=== PATIENT | female | born 1990 | race Caucasian/White ===

== ENCOUNTER 2016-09-08 10:14 | Inpatient (IN) | payer MEDICAID ==
[~2016-09-08] VITALS: Ht 149.9 cm; Wt 80.2 kg
[2016-09-08 10:18] VITALS: Ht 149.9 cm; Wt 80.2 kg
[2016-09-08 10:20] VITALS: BP 124/86; PULSE 74; RESP 18
[2016-09-08 10:25] LABS: URINE BLOOD (Dip) POC Negative (NEGATIVE)
[2016-09-08] MEDS ORDERED: PREN1TAB13 PO (10:27)
[2016-09-08 10:31] LABS: ADD SCAN DIFF NO
[2016-09-08 10:48] LABS: ALBUMIN 3.5 g/dl (3.3-4.9); BASOPHILS % 0.5 % (0.0-2.0); EOSINOPHILS # 0.3 10^3/ul (0.0-0.5); EOSINOPHILS % 4.2 % (0.0-7.0); HEMATOCRIT 39.7 % (37.0-47.0); HEMOGLOBIN 13.1 g/dl (12.0-16.0); LYMPHOCYTES % 25.3 % (15.0-51.0); MEAN CORPUSCULAR HEMOGLOBIN 28.4 pg (29.0-33.0); MEAN CORPUSCULAR VOLUME 85.9 fl (82.0-101.0); MEAN PLATELET VOLUME 11.6 fl (7.4-10.4); MONOCYTE # 0.7 10^3/ul (0.3-0.9); MONOCYTES % 8.6 % (0.0-11.0); NEUTROPHIL # 4.8 10^3/ul (1.6-7.5); NEUTROPHILS % 60.9 % (39.0-77.0); PLATELET COUNT 221 10^3/UL (140-415); POTASSIUM 4.4 mmol/L (3.5-5.1); RED BLOOD COUNT 4.62 10^6/ul (4.20-5.40); RED CELL DISTRIBUTION WIDTH 14.1 % (11.5-14.5); WHITE BLOOD COUNT 7.9 10^3/ul (4.8-10.8)
[2016-09-08 10:51] LABS: ALBUMIN/GLOBULIN RATIO 0.97; BILIRUBIN,INDIRECT 0.1 mg/dl (0-1.1); BILIRUBIN,TOTAL 0.1 mg/dl (0.2-1.3); CREATININE 0.56 mg/dl (0.44-1.00); TOTAL PROTEIN 7.1 g/dl (6.1-8.1)
[2016-09-08 10:55] LABS: INR 0.89; PT RATIO 0.9
[2016-09-08 10:56] LABS: PARTIAL THROMBOPLASTIN TIME 25.9 Sec (25.0-35.0)
--- NOTE | 2016-09-08 11:38 | RADRPT ---
PROCEDURE: US OB biophysical profile. CLINICAL INDICATION: decreased movements, PIH TECHNIQUE: Multiple sonographic images of the pelvis were obtained. The images were reviewed on a PACS workstation. COMPARISON: No prior studies are available for comparison. FINDINGS: There is a single viable intrauterine gestation. Cardiac activity is present with 144 beats per min pauma. There is a vertex presentation. The placenta is anterior. There is no evidence of placental abruption. There is a normal amount of amniotic fluid with an ANAMARIA = 8.3 cm. Biophysical profile: movement 2/2 tone 2/2. breathing 2/2 ANAMARIA 2/2 Total 01/19 RPTAT: AA . IMPRESSION: Normal biophysical profile. . .Eitan Marcelino MD, MD Date Time Electronically viewed and signed by .Eitan Marcelino MD, MD on 09/08/2016 11:37 .S/
--- NOTE | 2016-09-08 12:48 | TRIAGE ---
OB Triage Datetime Report Generated by CPN: 09/08/2016 12:48 Datetime: 09/08/2016 12:33 Comments: Pt to 2ne Datetime: 09/08/2016 12:32 Labor Evaluation Frequency: 4-6 Monitor Mode: External Duration (sec)2399: 40-80 Quality: Mild Pattern: Normal: <= 5 Contractions in 10 Minutes Resting Tone Daisy: Relaxed Heart Rate FHR Baseline Rate: 135 Monitor Mode: External US FHR Baseline Changes: No Baseline Change Variability: Moderate 6-25 bpm Accelerations: 15X15 Decelerations: None Category: Category I Pain Assessment Pain Scale: 0 Pain Presence: None/Denies Pain Type: N/A Pain Goal: 3 Datetime: 09/08/2016 12:25 Comments: Report to Kavita RN on 2NE Datetime: 09/08/2016 12:14 Comments: Dr. Watson was informed of pt's lab result (WNL), BPs 140-170's over 90-100's, c/o heada alfonzo. New order to sent pt to 2NE and start pt on Magnessium Sulfate 4 grams and then 2 grams. Low s alt diet and start the Bethamethasone. Datetime: 09/08/2016 11:55 Labor Evaluation Frequency: X4 Monitor Mode: External Duration (sec)2399: 40-60 Quality: Mild Pattern: Normal: <= 5 Contractions in 10 Minutes Resting Tone Daisy: Relaxed Heart Rate FHR Baseline Rate: 135 Monitor Mode: External US FHR Baseline Changes: No Baseline Change Variability: Moderate 6-25 bpm Accelerations: 15X15 Decelerations: None Category: Category I Pain Assessment Pain Scale: 0 Pain Presence: None/Denies Pain Type: N/A Pain Goal: 3 Datetime: 09/08/2016 11:50 Comments: LEFT TILT Datetime: 09/08/2016 11:00 Labor Evaluation Frequency: X4 Monitor Mode: External Duration (sec)2399: 40-90 Quality: Mild Pattern: Normal: <= 5 Contractions in 10 Minutes Resting Tone Daisy: Relaxed Heart Rate FHR Baseline Rate: 135 Monitor Mode: External US FHR Baseline Changes: No Baseline Change Variability: Moderate 6-25 bpm Accelerations: 15X15 Decelerations: None Category: Category I Pain Assessment Pain Scale: 0 Pain Presence: None/Denies Pain Type: N/A Pain Goal: 3 Vaginal Exam Membrane Status: Intact Datetime: 09/08/2016 10:55 Comments: 24 HR URINE COLLECTION STARTED Datetime: 09/08/2016 10:37 Comments: Dr. Watson was informed of pt's arrival to the unit sent from clinic for brice BP's and headaches. New order for PIH labs, BPP and 24 hrs urine collection. Datetime: 09/08/2016 10:30 Stage of : OB Triage Assessment Type: Triage Maternal Assessment Level of Consciousness: Fully Conscious DTR's/Clonus: DTRs 2+; No Clonus Headache: Denies (Annotations: Denies headache at this time) Blurred Vision: No Respiratory Effort: Unlabored; Regular Rhythm; Equal Expansion Breath Sounds, Left: Clear and Equal Breath Sounds, Right: Clear and Equal Nausea/Vomiting: Denies RUQ Epigastric Pain: Denies Lower Extremities Edema: None Upper Extremities Edema: None Facial Edema: None Fall Risk Assessment History of Falling: (0) No Secondary Diagnosis: (0) No Ambulatory Aid: (0) Bedrest/Nurse Assist IV Therapy: (0) No Gait: (0) Normal/Bedrest/Immobile Mental Status: (0) Oriented to Own Ability Fall Score: 0 Fall Risk Score Definition: No Risk: No action required Pain Assessment Pain Scale: 0 Pain Presence: None/Denies Pain Type: N/A Pain Goal: 3 Datetime: 09/08/2016 10:29 EGA: 34.2 Datetime: 09/08/2016 10:27 Time of Arrival: 09/08/2016 10:02 Arrived By: Ambulatory Arrived From: Dr. Patel Chief Complaint: Sent from clinic for high blood pressures and headaches Movement: Present Rupture of Membranes: Denies Vaginal Bleeding: None Vaginal Discharge: Denies Recent Sexual Intercouse: Denies Abdominal Trauma: Not Applicable Patient Complaints: Headache Provider Notified: [place] Initial Plan: NST, BPP, PIH PANEL Datetime: 09/08/2016 10:19 Stage of : OB Triage Datetime: 09/08/2016 10:18 Stage of : OB Triage Datetime: 09/08/2016 10:12 Stage of : OB Triage
[2016-09-08] MEDS: LACTATED RINGER'S 1,000 ML IV SCH ×2 (12:55→21:10)
[2016-09-08] MEDS ORDERED: MAGNESIUM SULFATE 4 GM/100 ML 100 ML ONE (13:02)
[2016-09-08] MEDS ORDERED: MAGNESIUM SULFATE 4 GM/100 ML 100 ML IV ONE (13:30)
[2016-09-08] MEDS: MAGNESIUM SULFATE 20 GM/500 ML 500 ML IV SCH (13:49)
[2016-09-08] MEDS: BETAMET NA PHOS/AC(6 MG/ML) 5ML INJ IM SCH (13:59)
--- NOTE | 2016-09-08 17:05 | HP ---
Date/Time of Note Date/Time of Note DATE: 09/08/16 TIME: 16:51 OB - History Hx of Present Free Text/Dictation Laboratory Tests Test 09/08/16 10:20 09/08/16 10:23 White Blood Count 7.910^3/ul Red Blood Count 4.6210^6/ul Hemoglobin 13.1g/dl Hematocrit 39.7% Mean Corpuscular Volume 85.9fl Mean Corpuscular Hemoglobin 28.4pg Mean Corpuscular Hemoglobin Concent 33.0g/dl Red Cell Distribution Width 14.1% Platelet Count 66690^3/UL Mean Platelet Volume 11.6fl Neutrophils % 60.9% Lymphocytes % 25.3% Monocytes % 8.6% Eosinophils % 4.2% Basophils % 0.5% Nucleated Red Blood Cells % 0.0/100WBC Neutrophils # 4.810^3/ul Lymphocytes # 2.010^3/ul Monocytes # 0.710^3/ul Eosinophils # 0.310^3/ul Basophils # 0.010^3/ul Nucleated Red Blood Cells # 0.010^3/ul Prothrombin Time 12.0Sec Prothrombin Time Ratio 0.9 INR International Normalized Ratio 0.89 Activated Partial Thromboplast Time 25.9Sec Sodium Level 133mmol/L Potassium Level 4.4mmol/L Chloride Level 104mmol/L Carbon Dioxide Level 21mmol/L Anion Gap 12 Blood Urea Nitrogen 13mg/dl Creatinine 0.56mg/dl Glucose Level 88mg/dl Uric Acid 4.0mg/dl Calcium Level 9.0mg/dl Total Bilirubin 0.1mg/dl Direct Bilirubin 0.00mg/dl Indirect Bilirubin 0.1mg/dl Aspartate Amino Transf (AST/SGOT) 29IU/L Alanine Aminotransferase (ALT/SGPT) 36IU/L Alkaline Phosphatase 123IU/L Total Protein 7.1g/dl Albumin 3.5g/dl Globulin 3.60g/dl Albumin/Globulin Ratio 0.97 Bedside Urine pH (LAB) 6.0 Bedside Urine Protein (LAB) Negative Bedside Urine Glucose (UA) Negative Bedside Urine Ketones (LAB) Negative Bedside Urine Blood Negative Bedside Urine Nitrite (LAB) Negative Bedside Urine Leukocyte Esterase (L Trace Current Medications Medications (Trade) Dose Ordered Sig/Sebastián Route PRN Reason Start Time Stop Time Status Last Admin Dose Admin Magnesium Sulfate 100 ml @ ud STK-MED ONCE .ROUTE 09/08/16 13:02 09/08/16 13:03 DC Lactated Ringer's 1,000 ml @ 125 mls/hr Q8H IV 09/08/16 13:10 09/08/16 12:55 Magnesium Sulfate 100 ml @ 200 mls/hr ONCE ONCE IV 09/08/16 13:30 09/08/16 13:59 DC 09/08/16 13:22 Magnesium Sulfate (Magnesium Sulfate 20 Gm/500 ml) 500 ml @ 50 mls/hr Q10H IV 09/08/16 13:10 09/08/16 13:49 Betamethasone Acet/Betameth SodPhos (Celestone Soluspan) 12 mg Q24H IM 09/08/16 13:30 09/09/16 13:31 09/08/16 13:59 26 years old female 2 para 1 EDC of October 18, 2016 admitted to [facility] referred from [facility] for suspected PIH patient has been running blood pressure at the clinic 140s 170s over 90s and complaint of headache no blurry vision no epigastric pain patient is being admitted for evaluation for -induced hypertension Chief Complaint: Rule out PIH Estimated Due Date: October 18, 2016 : 2 Para: 1 Care: Limited Care Ultrasounds: Normal mid trimester US Obstetrical Complications: None Medical Complications: None Past Family/Social History * Past Medical, Surgical, Family and Obstetric Histories reviewed from chart. Rubella: immune RPR/VDRL: Negative GBS Status: Negative HBsAG: Unknown OB Admission Exam Vital Signs Vital Signs Vital Signs Date Time Temp Pulse Resp B/P Pulse Ox O2 Delivery O2 Flow Rate FiO2 09/08/16 10:20 74 18 124/86 Room Air Physical Exam HEENT: WNL Heart: Rhythm Normal Lungs: Clear, Equal Abdomen: WNL Reflexes: Normal Cervical Dilatation: None Effacement: 0% Station: Ballotable Membranes: Intact Heart Rate: 130's Accelerations: Accelerations Present Varibility: Moderate Contractions on Admission: >10 Minutes Apart Intensity: Mild Last 72 hours Lab Results CBC & BMP 09/08/16 10:20 Liver Function Test 09/08/16 10:20 Alanine Aminotransferase (ALT/SGPT) 36 Albumin 3.5 Alkaline Phosphatase 123 H Aspartate Amino Transf (AST/SGOT) 29 Direct Bilirubin 0.00 Total Protein 7.1 OB Assessment/Plan Reason for admission: other (PIH workup) Plan: Other ( rule out PIH) Induction Method: other (Workup and treatment for -induced hypertension, presently on magnesium sulfate also receive steroids for lung maturity to result of 24 hours urine collection not available .) Other plan: PIH management at 34 weeks and 2days SISI WOOD MD Sep 08, 2016 17:03
[2016-09-09] MEDS: LACTATED RINGER'S 1,000 ML IV SCH ×3 (00:14→13:16)
[2016-09-09] MEDS: MAGNESIUM SULFATE 20 GM/500 ML 500 ML IV SCH ×2 (00:16→09:17)
--- NOTE | 2016-09-09 10:19 | PN ---
Date/Time of Note Date/Time of Note DATE: 09/09/16 TIME: 10:15 OB Subjective Subjective Subjective Afebrile vital signs are stable blood pressures running 130s over 70 currently on magnesium sulfate 1 g every hour. no complaint of headaches epigastric pain or blurry vision no contraction there is residual of 24 hours urine collection for protein not available we will continue expectant management for pertinent for suspected -induced hypertension OB Assessment/Plan Plan: Expectant Management SISI WOOD MD Sep 09, 2016 10:19
[2016-09-09 10:55] LABS: COLLECTION PERIOD 24 hrs
[2016-09-09 12:11] LABS: SCRET 0.56 mg/dl (0.44-1.00)
[2016-09-09] MEDS: BETAMET NA PHOS/AC(6 MG/ML) 5ML INJ IM SCH (13:39)
[2016-09-10] MEDS: LACTATED RINGER'S 1,000 ML IV SCH ×4 (00:13→23:37)
[2016-09-10] MEDS: MAGNESIUM SULFATE 20 GM/500 ML 500 ML IV SCH ×2 (01:56→23:36)
[2016-09-10 11:41] LABS: URINE TOTAL PROTEIN < 5.0 mg/dl
--- NOTE | 2016-09-10 11:54 | CONS ---
DATE OF ADMISSION: 09/08/2016 DATE OF CONSULTATION: 09/10/2016 HISTORY OF PRESENT ILLNESS: The patient was admitted 2 days ago with elevated blood pressures and s ome headache. She was placed on magnesium sulfate and given betamethasone. She is currently 34 wee ks and 4 days. Initially she had severe range blood pressures; however, since then her blood pressu res have normalized with some moderate range blood pressures. Labs are normal, but a 24-hour urine for protein shows less than 375 grams of protein. This is a brief note. A full note will be dictat ed. RECOMMENDATIONS: She has severe preeclampsia, over 34 weeks with neurologic symptoms being headache at the time of admission. She has received betamethasone and at this point delivery is recommended. Dictated By: REED PEREZ/CRISTIN Conf#: [id number] DID#: [id number]
[2016-09-10] MEDS: ACETAMINOPHEN 325 MG TAB PO PRN ×2 (12:02→22:30)
[2016-09-10] MEDS ORDERED: METHYLERGONOVINE 0.2 MG INJ IM PRN (12:30)
[2016-09-10] MEDS ORDERED: CARBOPROST 250 MCG INJ IM PRN (12:30)
[2016-09-10] MEDS ORDERED: OXYTOCIN 30 UNITS/LR 500 ML IV PRN (12:30)
[2016-09-10] MEDS ORDERED: MISOPROSTOL 200 MCG TAB PR PRN (12:30)
[2016-09-10] MEDS ORDERED: CEFAZOLIN 2 GM/50 ML (PMX) 50 ML IVPB SCH (12:30)
[2016-09-10] MEDS ORDERED: OXYTOCIN 30 UNITS/LR 500 ML IV SCH (12:30)
[2016-09-10] MEDS ORDERED: ONDANSETRON 4 MG INJ IV STA (12:35)
[2016-09-10] MEDS ORDERED: CITRIC ACID/NA CITRATE 30 ML CUP PO ONE (13:00)
[2016-09-10] MEDS ORDERED: AMPICILLIN 2 GM/NS (PMX) 100 ML IVPB ONE (13:00)
[2016-09-10 13:24] LABS: ADD SCAN DIFF NO
[2016-09-10 13:27] LABS: BASOPHILS % 0.1 % (0.0-2.0); EOSINOPHILS % 0.1 % (0.0-7.0); HEMATOCRIT 34.4 % (37.0-47.0); HEMOGLOBIN 11.5 g/dl (12.0-16.0); LYMPHOCYTES # 1.4 10^3/ul (0.8-2.9); LYMPHOCYTES % 14.6 % (15.0-51.0); MEAN CORPUSCULAR HEMOGLOBIN 29.1 pg (29.0-33.0); MEAN CORPUSCULAR HGB CONC 33.4 g/dl (32.0-37.0); MEAN CORPUSCULAR VOLUME 87.1 fl (82.0-101.0); MEAN PLATELET VOLUME 11.1 fl (7.4-10.4); MONOCYTE # 1.2 10^3/ul (0.3-0.9); NEUTROPHIL # 7.1 10^3/ul (1.6-7.5); NEUTROPHILS % 72.2 % (39.0-77.0); PLATELET COUNT 209 10^3/UL (140-415); RED BLOOD COUNT 3.95 10^6/ul (4.20-5.40); RED CELL DISTRIBUTION WIDTH 14.6 % (11.5-14.5); WHITE BLOOD COUNT 9.8 10^3/ul (4.8-10.8)
--- NOTE | 2016-09-10 14:24 | RADRPT ---
PROCEDURE: US OB. CLINICAL INDICATION: labor TECHNIQUE: Multiple sonographic images of the pelvis were obtained. Transabdominal imaging only w as performed. The images were reviewed on a PACS workstation. COMPARISON: No prior studies are available for comparison. FINDINGS: There is a single live intrauterine gestation. Cardiac activity is present with 137 beats per minut e. position is cephalic. The umbilical cord is seen between the head and cervix. Measurements were made in order to determine age. The results are as follows: BPD = 8.08 cm HC = 28.95 cm AC = 30.11 cm FL = 6.13 cm. Estimated gestational age of approximately 32 weeks 4 days. The estimated date of delivery is 11/01/2016. The EFW = 2110 g, 10.9 %ile. The placenta is anterior. There is no evidence for an abruption or placenta previa. There are no adnexal masses. IMPRESSION: 1. Single live intrauterine gestation of approximately 32 weeks 4 days, by ultrasound criteria. 2. The estimated date of delivery is 11/01/2016. 3. The estimated weight is 2110 g, 10.9 %ile. 4. Vertex position with the limb and cord presenting. RPTAT: HH .Antonia Tolbert MD, Date Time Electronically viewed and signed by .Antonia Tolbert MD, MD on 09/10/2016 14:23 .G/
[2016-09-10] MEDS: DOCUSATE SODIUM 100 MG CAP PO SCH (16:01)
[2016-09-10] MEDS: MULTIVIT/MIN/FOLATE/IRON/PREN TAB PO SCH (16:01)
[2016-09-10] MEDS: FERROUS SULFATE (EC) 325 MG TAB PO SCH (16:01)
[2016-09-10] MEDS ORDERED: ONDANSETRON 4 MG TAB PO PRN (23:00)
[2016-09-10] MEDS ORDERED: MAGNESIUM HYDROXIDE 30ML CUP PO ONE (23:00)
[2016-09-10] MEDS ORDERED: MAGNESIUM SULFATE 4 GM/100 ML 100 ML IVPB ONE ×2 (23:00)
[2016-09-11] MEDS: FERROUS SULFATE (EC) 325 MG TAB PO SCH (09:05)
[2016-09-11] MEDS: DOCUSATE SODIUM 100 MG CAP PO SCH (09:05)
[2016-09-11] MEDS: MULTIVIT/MIN/FOLATE/IRON/PREN TAB PO SCH (09:05)
[2016-09-11] MEDS ORDERED: LACTATED RINGER'S 1,000 ML IV ONE (11:43)
[2016-09-11] MEDS ORDERED: ONDANSETRON 4 MG INJ IV ONE (12:00)
[2016-09-11] MEDS ORDERED: CITRIC ACID/NA CITRATE 30 ML CUP PO ONE (12:00)
[2016-09-11] MEDS ORDERED: METOCLOPRAMIDE 10 MG INJ IV STA (12:22)
[2016-09-11 12:24] LABS: ADD SCAN DIFF NO
[2016-09-11 12:31] LABS: BASOPHILS % 0.3 % (0.0-2.0); EOSINOPHILS # 0.1 10^3/ul (0.0-0.5); EOSINOPHILS % 1.1 % (0.0-7.0); HEMATOCRIT 38.7 % (37.0-47.0); HEMOGLOBIN 12.9 g/dl (12.0-16.0); LYMPHOCYTES # 1.6 10^3/ul (0.8-2.9); LYMPHOCYTES % 21.9 % (15.0-51.0); MEAN CORPUSCULAR HEMOGLOBIN 29.1 pg (29.0-33.0); MEAN CORPUSCULAR HGB CONC 33.3 g/dl (32.0-37.0); MEAN CORPUSCULAR VOLUME 87.2 fl (82.0-101.0); MEAN PLATELET VOLUME 11.4 fl (7.4-10.4); MONOCYTE # 0.9 10^3/ul (0.3-0.9); MONOCYTES % 11.3 % (0.0-11.0); NEUTROPHIL # 4.8 10^3/ul (1.6-7.5); NEUTROPHILS % 63.9 % (39.0-77.0); PLATELET COUNT 207 10^3/UL (140-415); RED BLOOD COUNT 4.44 10^6/ul (4.20-5.40); RED CELL DISTRIBUTION WIDTH 14.4 % (11.5-14.5); WHITE BLOOD COUNT 7.5 10^3/ul (4.8-10.8)
[2016-09-11 12:43] LABS: INR 0.8; PROTIME 11.1 Sec (12.2-14.2); PT RATIO 0.9
[2016-09-11 12:44] LABS: PARTIAL THROMBOPLASTIN TIME 25.2 Sec (25.0-35.0)
[2016-09-11 12:45] LABS: ALBUMIN 3.3 g/dl (3.3-4.9)
[2016-09-11 12:46] LABS: POTASSIUM 4.1 mmol/L (3.5-5.1)
[2016-09-11 12:48] LABS: ALBUMIN/GLOBULIN RATIO 0.94; BILIRUBIN,INDIRECT 0.1 mg/dl (0-1.1); BILIRUBIN,TOTAL 0.1 mg/dl (0.2-1.3); CREATININE 0.58 mg/dl (0.44-1.00); TOTAL PROTEIN 6.8 g/dl (6.1-8.1)
[2016-09-11 12:49] LABS: CALCIUM 6.8 mg/dl (8.4-10.2)
[2016-09-11] MEDS ORDERED: morphine SULFATE/PF (10 MG/10 ML) INJ ONE (13:29)
[2016-09-11] MEDS ORDERED: FENTAnyl 50 MCG/ML VIAL ONE (13:29)
[2016-09-11] MEDS ORDERED: ONDANSETRON 4 MG INJ IV PRN (15:00)
[2016-09-11] MEDS ORDERED: NALOXONE (0.4 MG/ML) INJ IV PRN (15:00)
[2016-09-11] MEDS ORDERED: PROCHLORPERAZINE 10 MG INJ IV PRN (15:00)
[2016-09-11] MEDS ORDERED: HYDROmorphONE 1 MG/ML SYG IV PRN ×2 (15:00)
[2016-09-11] MEDS ORDERED: DIPHENHYDRAMINE 50 MG INJ IV PRN (15:00)
--- NOTE | 2016-09-11 15:19 | OPR ---
DATE OF OPERATION: 09/11/2016 PREOPERATIVE DIAGNOSIS: Intrauterine at 34 weeks and 4 days. complicated with se brittny -induced hypertension. Recommended by perinatology delivery. POSTOPERATIVE DIAGNOSIS: Intrauterine at 34 weeks and 4 days. complicated with severe -induced hypertension. Recommended by perinatology delivery. OPERATION PERFORMED: Primary transverse low cervical section. SURGEON: Sisi Watson MD REFRACTORY FURNACE DESIGNER: Sabrina Street MD ANESTHESIA: Spinal. ANESTHESIOLOGIST: Dr. Peres FINDINGS: Live baby boy, 's of 9 and 9. Baby weighed 4 pounds 2 ounces. DETAILS OF THE PROCEDURE: Under satisfactory spinal anesthesia the patient was prepped and draped a nd placed in the supine position, tilted to the left. Pfannenstiel incision was made, incision muller ied through the subcutaneous tissue. Bleeders were brought under control with electrocautery. Fasc ia was incised to the length of the incision. Rectus muscle was divided in the midline. Peritoneum entered through a transverse incision. Exploration of abdomen revealed a gravid uterus, normal-kellie earing tubes and ovaries. A bladder flap was developed. A transverse incision was made in the lowe r segment of the uterus. Amniotic sac ruptured. Clear amniotic fluid noted. A live baby boy was d elivered from footling breech. Shoulders delivered without any difficulty. Head delivered with Power riceau maneuver. Nasal oropharyngeal suction was performed and baby handed to the team for immediate attention. The patient received 20 units of Pitocin. Placenta delivered manually intact . Uterine cavity was cleaned with a wet sponge and drainage was established. Uterus was closed in 2 layers using Monocryl #1 in continuous fashion. Peritoneal cavity was irrigated with warm saline. Sponge, needle and instrument were reported to be correct. Abdominal peritoneum was closed with 2 -0 chromic catgut continuously. Rectus muscle was approximated with a few interrupted 2-0 chromic c atgut. Fascia was closed with #1 PDS in a continuous fashion. Subcutaneous tissue was approximated with interrupted 2-0 chromic catgut and skin closed with patito. Estimated blood loss was 600 mL. Urine bag contained 200 mL of clear urine. The patient tolerated the procedure well and was trans ferred to the recovery room in good condition. Dictated By: SISI CASTILLO/NTS Conf#: [id number] [facility]#: [id number]
[2016-09-11] MEDS: MAGNESIUM SULFATE 20 GM/500 ML 500 ML IV SCH ×2 (15:56→19:22)
[2016-09-11] MEDS ORDERED: OXYTOCIN 30 UNITS/LR 500 ML IV SCH (16:00)
[2016-09-11] MEDS: KETOROLAC 30 MG INJ IV PRN ×2 (16:52→23:52)
[2016-09-11 18:30] VITALS: BP 147/96; PULSE 65; RESP 18
[2016-09-11 19:00] VITALS: BP 137/87; PULSE 76; RESP 18
[2016-09-11] MEDS ORDERED: LANOLIN 7 GM TUBE TOP PRN (19:00)
[2016-09-11] MEDS ORDERED: ACETAMINOPHEN/CODEINE #3 TAB PO PRN ×2 (19:00)
[2016-09-11] MEDS ORDERED: MISOPROSTOL 200 MCG TAB PR PRN (19:00)
[2016-09-11] MEDS ORDERED: OXYTOCIN 30 UNITS/LR 500 ML IV PRN (19:00)
[2016-09-11] MEDS ORDERED: METHYLERGONOVINE 0.2 MG INJ IM PRN (19:00)
[2016-09-11] MEDS ORDERED: CARBOPROST 250 MCG INJ IM PRN (19:00)
[2016-09-11] MEDS ORDERED: CEFAZOLIN 1 GM/50 ML (PMX) 50 ML IVPB SCH (19:00)
[2016-09-11] MEDS ORDERED: OXYCODONE/ACETAMINOPHEN (5/325) TAB PO PRN (19:00)
[2016-09-11] MEDS: OXYTOCIN 30 UNITS/LR 500 ML IV SCH ×2 (19:24→22:45)
[2016-09-11 20:00] VITALS: BP 149/90; PULSE 68; RESP 18
[2016-09-11 21:00] VITALS: BP 136/87; PULSE 70; RESP 18
[2016-09-11 22:00] VITALS: BP 151/95; PULSE 74; RESP 18
[2016-09-11 23:00] VITALS: BP 132/77; PULSE 67; RESP 18
[2016-09-12] VITALS (15 sets, daily range): BP systolic 115–139; BP diastolic 63–87; PULSE 64–86; RESP 18–20
[2016-09-12] MEDS: OXYTOCIN 30 UNITS/LR 500 ML IV SCH ×4 (02:45→14:45)
[2016-09-12] MEDS: KETOROLAC 30 MG INJ IV PRN ×2 (05:34→12:34)
--- NOTE | 2016-09-12 07:11 | OPPN ---
Date/Time of Note Date/Time of Note DATE: 09/12/16 TIME: 07:08 Anesthesia Follow up Anesthesia Follow up Last documented vital signs 98.6 123/81 67 18 97% Respiratory function: WNL Cardiovascular function: WNL Comments pain controlled, tolerating po, no n/v, motor/sensation intact BLE, A&Ox3, VSS DANIEL LUTZ MD Sep 12, 2016 07:11
[2016-09-12 08:06] LABS: ADD SCAN DIFF NO
[2016-09-12 08:11] LABS: BASOPHILS % 0.2 % (0.0-2.0); EOSINOPHILS # 0.1 10^3/ul (0.0-0.5); EOSINOPHILS % 0.8 % (0.0-7.0); HEMATOCRIT 35.1 % (37.0-47.0); HEMOGLOBIN 11.4 g/dl (12.0-16.0); LYMPHOCYTES # 2.1 10^3/ul (0.8-2.9); LYMPHOCYTES % 17.8 % (15.0-51.0); MEAN CORPUSCULAR HEMOGLOBIN 28.5 pg (29.0-33.0); MEAN CORPUSCULAR HGB CONC 32.5 g/dl (32.0-37.0); MEAN CORPUSCULAR VOLUME 87.8 fl (82.0-101.0); MEAN PLATELET VOLUME 11.5 fl (7.4-10.4); NEUTROPHIL # 8.3 10^3/ul (1.6-7.5); NEUTROPHILS % 71.7 % (39.0-77.0); PLATELET COUNT 185 10^3/UL (140-415); RED CELL DISTRIBUTION WIDTH 14.4 % (11.5-14.5); WHITE BLOOD COUNT 11.5 10^3/ul (4.8-10.8)
[2016-09-12] MEDS: SENNA/DOCUSATE NA (8.6MG/50MG) TAB PO SCH ×2 (09:00→20:30)
[2016-09-12] MEDS: MAGNESIUM SULFATE 20 GM/500 ML 500 ML IV SCH (11:29)
--- NOTE | 2016-09-12 13:58 | QN ---
Documentation Comment POD#1 is stable afebrile NO VB +Flatus +Adequate urine BP WNL VS satble Gen NAD Abd Soft NT ND Dressing Removed Genitalia No blood at perinium --->Ambulation --->Discontinue Mg JARRET BALDERAS M.D. Sep 12, 2016 13:58
[2016-09-12] MEDS: OXYCODONE/ACETAMINOPHEN (5/325) TAB PO PRN ×2 (14:24→20:30)
[2016-09-12] MEDS: IBUPROFEN 600 MG TAB PO SCH (17:45)
[2016-09-13] MEDS: OXYCODONE/ACETAMINOPHEN (5/325) TAB PO PRN (03:02)
[2016-09-13 04:00] VITALS: BP 138/79; PULSE 72; RESP 18
[2016-09-13] MEDS: IBUPROFEN 600 MG TAB PO SCH ×4 (05:52→17:48)
[2016-09-13 07:30] VITALS: BP 144/90; RESP 18
--- NOTE | 2016-09-13 10:38 | PN ---
Date/Time of Note Date/Time of Note DATE: 09/13/16 TIME: 10:36 OB Subjective Subjective Subjective Post day 2 Afebrile blood pressures are running in high 130s over 70s no complaint of headache blurry vision or epigastric pain, abdomen soft bowel sounds present incision dry, no bowel movement fleets enema recommended SISI WOOD MD Sep 13, 2016 10:37
--- NOTE | 2016-09-13 10:45 | PN ---
Date/Time of Note Date/Time of Note DATE: 09/13/16 TIME: 10:42 OB Subjective Subjective Subjective Post day 2 Blood pressures running in the range of high 130s over 70s patient has no complaint of headache blurry vision or epigastric her abdomen is soft good bowel sounds no bowel movement extremities normal lochia normal SISI WOOD MD Sep 13, 2016 10:45
[2016-09-13] MEDS ORDERED: NA PHOSPHATE/BIPHOS 133 ML ENEMA PR ONE (11:00)
[2016-09-13] MEDS: SENNA/DOCUSATE NA (8.6MG/50MG) TAB PO SCH ×2 (11:43→20:50)
[2016-09-13 16:00] VITALS: BP 142/93; PULSE 73; RESP 16
[2016-09-13 20:30] VITALS: BP 129/94; PULSE 96; RESP 20
[2016-09-14] VITALS: BP 128/79; PULSE 92; RESP 19
[2016-09-14] MEDS: IBUPROFEN 600 MG TAB PO SCH ×3 (00:06→11:47)
[2016-09-14 03:45] VITALS: BP 129/83; PULSE 71; RESP 20
[2016-09-14 08:20] VITALS: BP 124/79; PULSE 70; RESP 16
[2016-09-14] MEDS: SENNA/DOCUSATE NA (8.6MG/50MG) TAB PO SCH (08:31)
[2016-09-14] MEDS ORDERED: DIPHTH/TET/ACEL PERTUSS (ADULT) 0.5 ML VIAL IM* ONE (09:00)
[2016-09-14] MEDS: OXYCODONE/ACETAMINOPHEN (5/325) TAB PO PRN (10:17)
--- NOTE | 2016-09-14 16:31 | PD.PPDC ---
WOMEN DESIGNER Discharge Instruction Condition Patient Condition: Good Diet Diet: Resume Regular Diet Activity/Restrictions Activity: Normal Activity Restrictions: No Exercising Wound/Drain Care Instructions Wound/Drain Care Instructions: Remove Steri Strips in 1 week Follow-up Follow-up with Physician: 4, Day/Days Provider Information: Appointment clinic in 4 days to discontinue patito Return to clinic for ANODIZER Instructions: Fever greater than 101 Worsening abdominal pain Excessive Vaginal Bleeding More than 2 pads per hour Unable to tolerate diet OB Instructions: Breast Tenderness Blurried Vision Headache Surgical Instructions: Incisional Drainage Incisional Redness SISI WOOD MD Sep 14, 2016 16:30
--- NOTE | 2016-09-14 16:45 | DS ---
Date/Time of Note Date/Time of Note DATE: 09/14/16 TIME: 16:39 Discharge Summary Admission/Discharge Info Admit Date/Time Sep 08, 2016 at 12:20 Discharge Date/Time September 14, 2016 at 1640 Final Diagnosis Post day 3 for -induced hypertension Patient Condition: Good Consults Perinatology consult Procedures Primary due to severe -induced hypertension not a good candidate for induction of labor which this option was discussed with the patient with the pros and cons and patient elected delivery by section Hx of Present Illness 26 years old 2 para 134 weeks and have which complicated with severe PIH recommended delivery by the perinatologist Hospital Course Satisfactory uneventful Home Meds Reported Medications Pnv95/Ferrous Fumarate/FA ( Vitamins Tablet) 1 Each Tablet, 1 EACH PO, TAB 09/08/16 Follow-up Plan Appointment clinic in 4 days to discontinue SISI Villasenor MD Sep 14, 2016 16:45
[2016-09-14 17:24] VITALS: BP 130/86; PULSE 76; RESP 16
== END 2016-09-14 17:52 | disposition home or self-care (01) | DRG 766 ==
LOC: OBT 10:14 → L-D 10:17 → OBT 12:20 → OBG 12:20 → L-D 09-11 11:23 → PP1 09-11 19:03
PROVIDERS: ADMIT Obstetrics & Gynecology; ATTEND Obstetrics & Gynecology
PROC: 10D00Z1 Extraction of Products of Conception, Low, Open Approach (ICD-10-PCS; principal; 2016-09-11 14:00)
DX: O13.4 Gestational [pregnancy-induced] hypertension without significant proteinuria, complicating childbirth (principal); Z37.0 Single live birth; Z3A.34 34 weeks gestation of pregnancy
CPT/HCPCS: 36415; 76815; 76818; 80053; 81003; 82575; 83735; 84156; 84560; 85025; 85610; 85730; 86592; 86850; 86900; 86901; 87340; 90715; 94760; 99464; G0463; J0290; J0690; J0702; J1200; J1885; J2274; J2405; J2590; J2765; J3010; J3475; J7120